=== PATIENT | female | born 1965 | race Caucasian/White ===

== ENCOUNTER 2021-12-31 17:16 | Emergency (ER) | payer BC, SELFPAY ==
[2021-12-31 17:28] VITALS: BP 131/56; PULSE 74; RESP 18; TEMP 36.5; O2SAT 96; BMI 26.5
[2021-12-31 17:30] VITALS: BP 158/77; PULSE 103; RESP 18; O2SAT 99
--- NOTE | 2021-12-31 17:31 | DI.RAD.S_ITS ---
PROCEDURE: XR HIP W PEL IF DONE LT 2V INDICATIONS: GLF TECHNIQUE: AP pelvis with lateral view(s) of the left hip(s). COMPARISON: None. FINDINGS: Bones: No fractures or dislocations. No evidence of avascular necrosis of femoral head. Pelvic ring appears intact. No suspicious bony lesions. Soft tissues: The visualized bowel gas pattern is normal. No suspicious soft tissue calcifications. IMPRESSION: No acute left hip fracture or dislocation. No evidence of avascular necrosis. Dictated by: Quique Chilel M.D. on 12/31/2021 at 18:20 Approved by: Quique Chilel M.D. on 12/31/2021 at 18:21
--- NOTE | 2021-12-31 17:31 | DI.RAD.S_ITS ---
PROCEDURE: XR LUMBAR SPINE 2-3V INDICATIONS: GLF TECHNIQUE: 3 views of the lumbar spine were acquired. COMPARISON: None. FINDINGS: Bones: 5 [id number] vertebrae are present. There is straightening of normal lumbar lordosis. Acute appearing superior endplate compression deformity at L5 level is seen with approximately 33% loss of L5 vertebral body height anteriorly. Slight retropulsion of L5 posterior wall is seen causing mild to moderate central canal stenosis at this level. No vertebral body compression fractures. No suspicious bony lesions. Soft tissues: Overlying bowel gas pattern is normal. No suspicious soft tissue calcifications. IMPRESSION: Acute appearing compression deformity at L5 level as above. Dictated by: Quique Chilel M.D. on 12/31/2021 at 18:18 Approved by: Quique Chilel M.D. on 12/31/2021 at 18:20
--- NOTE | 2021-12-31 18:04 | ED_ITS ---
HPI - Fall General Chief Complaint: Fall Stated Complaint: GLF left hip and lower back Time Seen by Provider: 12/31/21 18:03 Source: patient Mode of arrival: Wheelchair History of Present Illness HPI Narrative: 56-year-old female nonsmoker with no significant chronic medical problems presents with her in the chief complaint of a ground level fall resulting in pain in her lower back and left posterior hip. She is currently wearing an orthopedic boot due to a recently diagnosed stress fracture in her right foot. She was walking backwards outside when she stepped awkwardly in a divot in the ground which caused her to stumble backwards and eventually fall onto her back and left hip. She denies any head, neck or upper back pain. She has no chest pain or shortness of breath. She is not dizzy nor weak or lightheaded. She has pain in her lower back that is worse with motion and improves with rest. She denies any radiation of this pain. She has no fever and does not take blood thinners. She denies numbness, tingling or weakness of her lower extremities. She denies loss of control of bowel or bladder. Additionally she has pain in her left posterior buttock Related Data Previous Rx's Medication Instructions Recorded cyclobenzaprine 10 mg tablet 10 mg PO TID PRN #14 tab 12/31/21 hydrocodone 5 mg-acetaminophen 325 1 tab PO Q4-6H PRN #10 tab 12/31/21 mg tablet ketorolac 10 mg tablet 10 mg PO Q6H PRN #14 tab 12/31/21 Allergies Allergy/AdvReac Type Severity Reaction Status Date / Time No Known Drug Allergies Allergy Verified 12/31/21 17:30 Review of Systems Review of Systems Narrative: GENERAL: Denies chills, fatigue, malaise, fever, sweats. HEENT: Denies sinus pain, ear pain, sore throat, difficulty swallowing, dizziness. RESPIRATORY: Denies dyspnea, cough, wheezing, hemoptysis, sputum. CARDIOVASCULAR: Denies chest pain, palpitations, orthopnea, edema, GASTROINTESTINAL: Denies nausea, vomiting, abdominal pain, diarrhea, constipation, melena. : Denies dysuria, frequency, incontinence, hematuria, urinary retention. MUSCULOSKELETAL: See HPI SKIN: Denies rash, skin lesions, or other NEUROLOGIC: See HPI PSYCHIATRIC: No concerning psychosocial issues. 12 point review of systems is negative except for those stated above Patient History Social History Smoking Status: Never smoker Smoking Status: Never smoker alcohol intake frequency: holidays/special occasions only Substance Use Type: does not use Exam Narrative Exam Narrative: GENERAL: [56] year old patient appears stated age. Well-developed patient, in mild distress. Obviously uncomfortable, lying on her right side as it provided some relief HEAD: Atraumatic. Normocephalic. EYES: Pupils equal round and reactive. Extraocular motions intact. No scleral icterus. No injection or drainage. ENT: Nose without bleeding, purulent drainage. Throat without erythema, tonsillar hypertrophy or exudate. Airway patent. NECK: Trachea midline. Non tender CARDIOVASCULAR: Regular rate and rhythm without murmurs, gallops, or rubs. RESPIRATORY: Clear to auscultation. Breath sounds equal bilaterally. No wheezes, rales, or rhonchi. GASTROINTESTINAL: Abdomen soft, non-tender, nondistended. EXTREMITIES: Full but painful range of motion of left hip. She has discomfort with active range of motion in her left buttock but no pain whatsoever with passive range of motion, axial loading, internal or external rotation. This is closed neurovascularly intact BACK: polishing machine tender but free of any obvious external abnormalities. Patient exam notes decreased range of motion and muscle spasm, but no CVA tenderness, she is most tender in the midline in her lower lumbar region There are no symptoms of cauda equina such as saddle anesthesia, and decreased reflexes, decreased sensation or strength. NEURO: AOx3. SKIN: No rash or erythema of visible areas Initial Vital Signs Initial Vital Signs: Vital Signs Temperature 97.7 F 12/31/21 17:28 Pulse Rate 74 12/31/21 17:28 Respiratory Rate 18 12/31/21 17:28 Blood Pressure 131/56 L 12/31/21 17:28 Pulse Oximetry 96 12/31/21 17:28 Course Orders Ordered: ED Orders 12/31/21 17:31 XR hip w pel if done LT 2V Stat XR lumbar spine 2-3V Stat Discontinued Medications Hydrocodone Bitart/Acetaminophen (Hydrocodone/Acet 5/325 Prepack) 1 bottle [facility] SEEINSTR ONE Stop: 12/31/21 18:53 Last Admin: 12/31/21 19:05 Dose: 1 bottle Documented by: KEN Cyclobenzaprine HCl (Cyclobenzaprine 10 Mg Prepack) 1 bottle [facility] [place] Stop: 12/31/21 18:53 Last Admin: 12/31/21 19:05 Dose: 1 bottle Documented by: KEN Vital Signs Vital signs: Vital Signs - 8 hr 12/31/21 17:30 Pulse Rate 103 H Respiratory Rate 18 Blood Pressure 158/77 H Pulse Oximetry 99 MDM - Fall Imaging Data Lumbar Xray: Radiologist's Impression: [address] [address] XRay Report Signed Patient: Andressa Ness MR#: [id number] : 1965 Acct:[id number] Age/Sex: 56 / F Date of Service: 12/31/21 Loc: ED Accession Number: [id number] ?? Procedure: XR lumbar spine 2-3V Ordering Provider: Magali Castellon D.O. PROCEDURE:? XR LUMBAR SPINE 2-3V ? INDICATIONS:? GLF ? TECHNIQUE:? 3 views of the lumbar spine were acquired.? ? COMPARISON:? None. ? FINDINGS:? ? Bones:? 5 [id number]-[id number] vertebrae are present.? There is straightening of normal lumbar lordosis.? Acute appearing superior endplate compression deformity at L5 level is seen with approximately 33% loss of L5 vertebral body height anteriorly.? Slight retropulsion of L5 posterior wall is seen causing mild to moderate central canal stenosis at this level.? No vertebral body compression fractures.? No suspicious bony lesions.? ? Soft tissues:? Overlying bowel gas pattern is normal.? No suspicious soft tissue calcifications.? ? ? IMPRESSION:? Acute appearing compression deformity at L5 level as above.? ? Dictated by: Quique Chilel M.D. on 12/31/2021 at 18:18 ? ? Approved by: Quique Chilel M.D. on 12/31/2021 at 18:20 ? Hip Xray: Radiologist's Impression: [address] [address] XRay Report Signed Patient: Andressa Ness MR#: [id number] : 1965 Acct:[id number] Age/Sex: 56 / F Date of Service: 12/31/21 Loc: ED Accession Number: [id number] ?? Procedure: XR lumbar spine 2-3V Ordering Provider: Magali Castellon D.O. PROCEDURE:? XR LUMBAR SPINE 2-3V ? INDICATIONS:? GLF ? TECHNIQUE:? 3 views of the lumbar spine were acquired.? ? COMPARISON:? None. ? FINDINGS:? ? Bones:? 5 [id number]-pva-[id number] vertebrae are present.? There is straightening of normal lumbar lordosis.? Acute appearing superior endplate compression deformity at L5 level is seen with approximately 33% loss of L5 vertebral body height anteriorly.? Slight retropulsion of L5 posterior wall is seen causing mild to moderate central canal stenosis at this level.? No vertebral body compression fractures.? No suspicious bony lesions.? ? Soft tissues:? Overlying bowel gas pattern is normal.? No suspicious soft tissue calcifications.? ? ? IMPRESSION:? Acute appearing compression deformity at L5 level as above.? ? Dictated by: Quique Chilel M.D. on 12/31/2021 at 18:18 ? ? Approved by: Quique Chilel M.D. on 12/31/2021 at 18:20 ? [facility] Narrative Medical decision making narrative: Patient with injury sustained from ground level fall. Imaging notes compression fracture of L5 and no significant findings on hip x-ray. She has no neurologic symptoms, pain is well controlled and she is able to ambulate even without a walker though she is sent with 1 to ease in the process. Though she has pain in her left posterior buttock her examination is very reassuring and CT not pursued for occult hip fracture for this reason. She is given extensive return precautions, instructions to follow-up with orthopedist and questions have been answered to her apparent satisfaction Discharge Plan Departure Patient Disposition: Home Clinical Impression: Closed compression fracture of L5 vertebra Instructions: DI for Vertebral Fracture, How to Prevent Falls Activity Restrictions/Additional Instructions: *You have been diagnosed with [L5 compression fracture as a consequence of your fall. The Xray of your hip shows no fracture or dislocation. ] *What to do: *Please continue to take your regular medications as directed. [ x] New medication prescriptions sent to your pharmacy: [[facility] in [place] ] [ ] New medication written as a paper prescription [ ] No new medications given *Please follow up with your primary care provider in 2-3 days, call for an appointment. Let them know you were seen in the Emergency Department and that we ask that you be seen in follow up. We will electronically transmit a record of today's note if your PCP is in our system *Please contact [facility] for follow up so they can track your progress and can discuss various other treatment options. Please call them at the number listed below tomorrow morning and let them know you were seen in the emergency department and we want you seen in follow up. *Return to Emergency Department if you should have any new, worsening or concerning symptoms, such as [increased pain, loss of control of bowel/bladder, weakness of your legs or other bothersome symptoms Prescriptions: New cyclobenzaprine 10 mg tablet 10 mg PO TID PRN (Reason: muscle spasm) Qty: 14 0RF hydrocodone-acetaminophen 5-325 mg tablet 1 tab PO Q4-6H PRN (Reason: pain) Qty: 10 0RF ketorolac 10 mg tablet 10 mg PO Q6H PRN (Reason: pain) Qty: 14 0RF Referrals: Dio Simms MD [Primary Care Provider] - Negrita Morales MD [Physician] -
[2021-12-31] MEDS: HYDROCODONE/ACET 5/325 PREPACK 1 BOTTLE MISC (19:05)
[2021-12-31] MEDS: CYCLOBENZAPRINE 10 MG PREPACK 1 BOTTLE MISC (19:05)
== END 2021-12-31 19:35 | disposition home or self-care (01) ==
PROVIDERS: Emergency Provider Emergency Medicine; PCP Family Medicine
DX: S32.059A Unspecified fracture of fifth lumbar vertebra, initial encounter for closed fracture (principal); W18.30XA Fall on same level, unspecified, initial encounter
CPT/HCPCS: 72100; 73502; 99283